=== PATIENT | male | born 1955 | race Caucasian/White ===

== ENCOUNTER → 2024-04-21 | Outpatient (CLI) | payer MEDICARE ==
[~2024-04-21] MED LIST: ISOVUE-370 76% 100ML VIAL ONE; NOXI1TAB PO; PRAV80TA2; SUMA100T2 PO; TAMS1CAP17
== END ==
LOC: M PLAIMG 12:27
PROVIDERS: ATTEND Internal Medicine Medical Oncology
DX: D72.820 Lymphocytosis (symptomatic) (principal)
CPT/HCPCS: 70491; Q9967